=== PATIENT | female | born 1990 | race Caucasian/White ===

== ENCOUNTER 2023-11-02 13:12 | Outpatient (AMB) | payer OTHER, SELFPAY ==
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
[2023-11-02 13:25] VITALS: BP 108/78; PULSE 76; RESP 14; TEMP 36.4; O2SAT 100; BMI 38.8
== END 2023-11-02 13:53 | disposition home or self-care (01) ==
PROVIDERS: PCP Internal Medicine; Visit Provider Internal Medicine
DX: J45.909 Unspecified asthma, uncomplicated (principal); Z91.018 Allergy to other foods; S53.441S Ulnar collateral ligament sprain of right elbow, sequela; F41.9 Anxiety disorder, unspecified
CPT/HCPCS: 99214; G2211

== ENCOUNTER 2023-11-05 07:54 | Outpatient (REF) | payer OTHER, SELFPAY ==
[2023-11-05 11:21] LABS: MANUAL DIFF FLAG NO
[2023-11-05 11:31] LABS: Basophils Percent Auto 0.5 % (0-2); Eosinophils Absolute Auto 0.2 X10*3/uL (0.0-0.4); Eosinophils Percent Auto 5.2 % (0-4); Hematocrit 43.9 % (37.0-47.0); Hemoglobin 14.9 g/dl (12.0-16.0); Imm Gran Abs Auto 0.01 X10*3/uL (0.00-0.03); Imm Gran Pct Auto 0.2 % (0.0-0.4); Lymphocytes Absolute Auto 1.6 X10*3/uL (1.2-4.9); Lymphocytes Percent Auto 35.4 % (20-40); Mean Corpuscular HGB Conc 33.9 g/dl (31.0-35.0); Mean Corpuscular Hemoglobin 29.5 pg (27.0-33.0); Mean Corpuscular Volume 86.9 fL (80.0-98.0); Mean Platelet Volume 11.1 fL (9.4-12.3); Monocytes Absolute Auto 0.3 X10*3/uL (0.1-1.2); Monocytes Percent Auto 6.6 % (2-11); Neutrophils Absolute Auto 2.3 x10*3/uL (2.0-8.3); Neutrophils Percent Auto 52.1 % (45-73); Platelet Count 253 X10*3/uL (160-400); Red Blood Count 5.05 X10*6/uL (4.20-5.50); Red Cell Distribution Width 12.5 % (11.0-16.0); White Blood Count 4.4 X10*3/uL (4.8-10.8)
[2023-11-05 12:09] LABS: TSH reflex Free T4 1.48 uIU/mL (0.32-4.0)
[2023-11-07 08:14] LABS: Lutenizing Hormone 4.4 mIU/mL
[2023-11-12 04:38] LABS: Estradiol Ultra Sensitive 55 pg/mL
== END 2023-11-05 07:55 | disposition home or self-care (01) ==
LOC: HO.WFDLDS 07:54
PROVIDERS: Visit Provider Internal Medicine
DX: R23.2 Flushing (principal); R61 Generalized hyperhidrosis
CPT/HCPCS: 36415; 82670; 83002; 84443; 85025

== ENCOUNTER 2024-01-31 14:00 | Outpatient (AMB) | payer OTHER, SELFPAY ==
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
[2024-01-31 14:32] VITALS: BP 108/84; PULSE 86; RESP 18; O2SAT 96; BMI 33.6
== END 2024-01-31 15:19 | disposition home or self-care (01) ==
PROVIDERS: PCP Internal Medicine; Visit Provider Internal Medicine
DX: Z80.1 Family history of malignant neoplasm of trachea, bronchus and lung (principal); T75.89XA Other specified effects of external causes, initial encounter
CPT/HCPCS: 99213

== ENCOUNTER 2024-02-12 10:26 | Outpatient (REF) | payer OTHER, SELFPAY ==
--- NOTE | ~2024-02-12 | XR_ITS ---
EXAMINATION: XR CHEST CLINICAL INFORMATION: T75.89XA - Other specified effects of external causes, initial encounter COMPARISON: None available. TECHNIQUE: 2 views of the chest were obtained. FINDINGS: No consolidation, pleural effusion or pneumothorax. Cardiomediastinal silhouette is normal. Multilevel thoracic spondylosis, more conspicuous at T8-9. XR/XR chest 2V IMPRESSION: No acute airspace disease. Electronically signed by: Peter Guillory MD 04/24/2024 09:32 AM EST
== END 2024-02-12 10:27 | disposition home or self-care (01) ==
LOC: HO.HMGCX 10:26
PROVIDERS: PCP Internal Medicine; Visit Provider Internal Medicine
DX: J45.909 Unspecified asthma, uncomplicated (principal); T75.89XA Other specified effects of external causes, initial encounter
CPT/HCPCS: 71046

== ENCOUNTER → 2024-02-12 10:31 | Outpatient (BNV) | payer OTHER, SELFPAY | PROVIDERS: PCP Internal Medicine; Visit Provider Radiology Diagnostic Radiology | DX: T75.89XA Other specified effects of external causes, initial encounter (principal) | CPT/HCPCS: 71046 ==

== ENCOUNTER 2024-08-21 10:31 | Outpatient (AMB) | payer OTHER, SELFPAY ==
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
[2024-08-21 10:42] VITALS: BP 102/82; PULSE 64; RESP 12; O2SAT 99; BMI 29.5
--- OUTSIDE RECORDS SUMMARY | 2024-08-21 11:50 | XMS_ITS ---
Author Name [facility] Organization Unknown History of Medication Use Medication Directions Dispensed Refills Start Date End Date Stat us amoxicillin-clavula wagner (AUGMENTIN) 875-125 MG per tablet Take 1 tablet by mouth 2 (two) times a day. 07/25/2022 08/02/2022 active predniSONE (DELTASONE) 20 MG tablet Take 2 tablets (40 mg total) by mouth daily. With food. 07/25/2022 07/31/2022 active Problems Problem Status Onset Date Problem Type Date of Resoluti on Source Bronchitis with bronchospasm active EncounterDiagnosisAct [facility] Non-recurrent acute suppurative otitis media of right ear without spontaneous rupture of tympanic membrane active EncounterDiagnosisAct [facility] Encounters Encounter Type Encounter Reason Primary Diagnosis Location Date Ambulatory Acute suppurativ e otitis media without spontaneous rupture of ear drum, right ear [facility] 07/25/2022 Ambulatory Other plastic gee rgery for unacceptable cosmetic appearance [facility] 01/30/2022 Care Team Organization Name Specialty Phone Email Start Date End Da te [facility] NO PCP Primary Care 07/25/2022 07/25/2022 [facility] 07/25/2022 07/25/2022 [facility] 07/25/2022 [facility] Essie Olguin Primary Care 0 01/30/2022 01/30/2022
--- OUTSIDE RECORDS SUMMARY | 2024-08-21 11:50 | XMS_ITS | Clinical Summary ---
Author Organization [address] [address] Phone Care Team Providers Care Hat Blocking Operator Name Role Phone Essie Olguin MD Primary Care Provider Allergies Active Allergy Reactions Criticality Noted Date Comments [place] Anaphylaxis High 11/03/2021 Metoclopramide Seizures 11/03/2021 Medications cetirizine (ZYRTEC) 10 mg tablet Take 10 mg by mouth daily. Active albuterol sulfate 90 mcg/actuation aebs Inhale 180 mcg into the lungs every 4 (four) hours. Active fluticasone propionate (FLOVENT HFA) 110 mcg/actuation inhaler Inhale 2 puffs into the lungs 2 (two) times daily. Active Social History Tobacco Use Types Packs/Day Years Used Date Smoking Tobacco: Never Alcohol Use Standard Drinks/Week Comments Yes 0 (1 standard drink = 0.6 oz pur e alcohol) social Comments No Sex and Gender Information Value Date Recorded Sex Assigned at Not on file Legal Sex Female 2:51 PM EDT Gender Identity Not on file Sexual Orientation Not on file Last Filed Vital Signs Vital Sign Reading Time Taken Comments Blood Pressure 134/71 01/30/2022 10:00 PM EDT Pulse 89 01/30/2022 10:00 PM EDT Temperature 36.1 ??C (97 ??F) 01/30/2022 9:00 PM EDT Respiratory Rate 18 01/30/2022 10:00 PM EDT Oxygen Saturation 100% 01/30/2022 10:00 PM EDT Inhaled Oxygen Concentration - - Weight 95.3 kg (210 lb) 01/27/2022 4:38 PM EDT Height 157.5 cm (5' 2 ) 01/27/2022 4:38 PM EDT Body Mass Index 38.41 01/27/2022 4:38 PM EDT Plan of Treatment Health Maintenance Due Date Last Done Comments HIV screening 2001 Hepatitis C screening 2006 Tetanus adult (Td q 10,TDAP once) 2008 Cervical cancer screening 2009 Influenza vaccine 12/23/2023 Covid-19 vaccine series (2023-25 season) 2024 RSV Immunization (1 - 1-dose 75+ series) 08/04/2063 Meningococcal Vaccine Aged Out No mariluz seferino eligible based on patient's age to complete this topic Pneumococcal Vaccine (2 - 49 years) Aged Out No longer eligible based on patient's age to complete this topic Medical Devices Implanted Type Area Pelt Grader Device Identifier Shelf Expiration Date Model / Serial / Lot Clip Breast Insurance [facility] PL[facility] Care Teams Hat Blocking Operator Relationship Specialty Start Date End Date Essie Olguin MD PCP - General Internal Medicine 11/05/21
--- OUTSIDE RECORDS SUMMARY | 2024-08-21 11:50 | XMS_ITS | Clinical Summary ---
Author Organization [facility] Address [address] [place] [address] Care Team Providers Care Molder Punch Name Role Phone Pcp, No Primary Care Provider Unavailabl e Allergies Active Allergy Reactions Criticality Noted Date Comments [place] Anaphylaxis High 07/25/2022 Metoclopramide Anaphylaxis High 07/25/2022 Medications Medication Sig Dispensed Refills Start Date End Date Status Flovent HFA 110 MCG/ACT inhaler Inhale 2 puffs 2 (two) times a day. 05/26/2022 Active amoxicillin-clavulanat e (AUGMENTIN) 875-125 MG per tabletIndications:Non- recurrent acute suppurative otitis media of right ear without spontaneous rupture of tympanic membrane Take 1 tablet by mouth 2 (two) times a day. 14 tablet 07/25/2022 Active predniSONE (DELTASONE) 20 MG tabletIndications:Bron chitis with bronchospasm Take 2 tablets (40 mg total) by mouth daily. With food. 10 tablet 07/25/2022 Active Active Problems No known active problems Social History Tobacco Use Types Packs/Day Years Used Date Smoking Tobacco: Never Assessed Sex and Gender Information Value Date Recorded Sex Assigned at Not on file Gender Identity Not on file Sexual Orientation Not on file Last Filed Vital Signs Vital Sign Reading Time Taken Comments Blood Pressure 123/84 07/25/2022 9:44 AM EST Pulse 87 07/25/2022 9:44 AM EST Temperature 36.7 ??C (98.1 ??F) 07/25/2022 9:44 AM ES T Respiratory Rate - - Oxygen Saturation 94% 07/25/2022 9:44 AM EST Inhaled Oxygen Concentration - - Weight 90.7 kg (200 lb) 07/25/2022 9:44 AM EST Height 157.5 cm (5' 2 ) 07/25/2022 9:44 AM EST Body Mass Index 36.58 07/25/2022 9:44 AM EST Plan of Treatment Health Maintenance Due Date Last Done Comments Hepatitis C Virus Screening 1988 HIV Screening 2001 DTaP/Tdap/Td Vaccines (1 - Tdap) 08/04/2007 Hepatitis B Vaccines (1 of 3 - 19+ 3-dose series) 08/04/2007 Pap Smear (Ages 21-65) 2009 Influenza Vaccine 12/23/2023 COVID-19 Vaccine (1 - 2023-2 5 season) 2024 HPV Vaccines Aged Out No longer eligi ble based on patient's age to complete this topic Pneumococcal Vaccine: Pediat tiana (0-5 Years) and At-Risk Patients (6 to 49 Years) Aged Out No longer eligible b ased on patient's age to complete this topic Care Teams Molder Punch Relationship Specialty Start Date End Date Pcp, No PCP - General General Medicine 07/19/22
== END 2024-08-21 11:44 | disposition home or self-care (01) ==
LOC: HO.HMCFM 10:32
PROVIDERS: PCP Internal Medicine; Visit Provider Internal Medicine
DX: R68.82 Decreased libido (principal)

== ENCOUNTER → 2024-08-21 10:31 | Outpatient (BNVA) | payer OTHER, SELFPAY | PROVIDERS: PCP Internal Medicine; Visit Provider Internal Medicine | DX: R68.82 Decreased libido (principal); M25.50 Pain in unspecified joint | CPT/HCPCS: 96127 ==

== ENCOUNTER 2024-08-21 12:14 | Outpatient (REF) | payer OTHER, SELFPAY ==
--- OUTSIDE RECORDS SUMMARY | 2024-08-21 13:56 | XMS_ITS | Clinical Summary ---
Author Organization [address] [address] Phone Care Team Providers Care Skin Washer Name Role Phone Essie Olguin MD Primary Care Provider Allergies Active Allergy Reactions Criticality Noted Date Comments [place] Anaphylaxis High 11/03/2021 Metoclopramide Seizures 11/03/2021 Medications [...] this topic Medical Devices Implanted Type Area Shale Processing Technician Device Identifier Shelf Expiration Date Model / Serial / Lot Clip Breast Insurance [facility] PL[facility] Care Teams Skin Washer Relationship Specialty Start Date End Date Essie Olguin MD PCP - General Internal Medicine 11/05/21
--- OUTSIDE RECORDS SUMMARY | 2024-08-21 13:56 | XMS_ITS | Clinical Summary ---
Author Organization [facility] Address [address] [place] [address] Care Team Providers Care Picture Hanger Name Role Phone Pcp, No Primary Care Provider Unavailabl e Allergies Active Allergy Reactions Criticality Noted Date Comments [place] Anaphylaxis High 07/25/2022 Metoclopramide Anaphylaxis High 07/25/2022 [...] age to complete this topic Care Teams Picture Hanger Relationship Specialty Start Date End Date Pcp, No PCP - General General Medicine 07/19/22
[2024-08-21 15:54] LABS: Erythrocyte Sedimentation Rate 2 MM/HR (0-20)
[2024-08-22 20:59] LABS: CRP High Sensitivity 1.1 mg/L
== END 2024-08-21 12:15 | disposition home or self-care (01) ==
LOC: HO.WFDLDS 12:14
PROVIDERS: Visit Provider Internal Medicine
DX: M25.50 Pain in unspecified joint (principal)
CPT/HCPCS: 36415; 85652; 86141

== ENCOUNTER 2024-11-28 13:40 | Outpatient (AMB) | payer OTHER, SELFPAY ==
--- NOTE | 2024-11-28 14:08 | MHC.PC.OV ---
Vital Signs 11/28/24 14:12 Height 5 ft 2.6 in Weight 169 lb 6 oz BMI 30.4 BP 124/73 Blood Pressure Location Rt brachial Position Sitting Respiration 16 Pulse 63 Pulse Source Pulse Oximeter Temp 98.7 F Temp Source Oral Pulse Oximetry (%) 98 Oxygen Delivery Method Room Air Intake Visit Reasons: discuss some symptoms Intake Note: patient here c/o having some concerns about thyroid function Bead Flipper Required: No Is last menstrual period known: Yes Last menstrual period: 11/16/24 Post menopausal: No Patient : No Allergies corn Allergy (Unknown, Verified 11/28/24 14:42) Unknown gluten Allergy (Unknown, Verified 11/28/24 14:42) Unknown metoclopramide (From Reglan) Allergy (Unknown, Verified 11/28/24 14:42) Seizure Medication List - Last Reconciled 11/28/24 by Michelle Greenwood CNP budesonide 180 mcg/actuation (Pulmicort Flexhaler) 2 inhalations inhalation BID cetirizine (Zyrtec) 10 mg PO DAILY PRN Tobacco use date assessed: 11/28/24 Dental Screening Dental Screen Date: 11/28/24 Did you have a dental visit in the last 12 months?: Yes Did you have a dental problem in the last 6 months where you did not have access to dental care?: No Was dental information given to patient?: Patient has dentist HPI HPI Comments History of Present Illness Details 34-year-old female presents with complaints of brain fog, exhaustion, and thinning of her hair for the past 6 months. She also reports changes in her menstural cycle from 3.5 days to 5 days in the last 6 months. He denies any other symptoms. She usually follows Dr. Leal. Her last visit was 10 months ago. [facility] Medical History Varicella Tear of ulnar collateral ligament of elbow Stress reaction Right arm pain Class II obesity Moderate asthma without complication Migraine Insomnia Food allergy Anxiety Surgical History H/O adenoidectomy H/O arthroscopic knee surgery History of colposcopy Family History Mother FH: mental illness Father Alcoholism Cancer of skin Paternal Grandmother Alcoholism Maternal Grandmother Breast cancer Other Substance use Social History Housing: House Alcohol intake: current Patient Tobacco Use Status: Never used Tobacco e-Cigarette/Vaping Use: Never Used Second Hand Smoke Exposure: Yes (past) Current occupational status: employed 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 Current occupational exposures/hazards: No Cognitive needs: No Hearing needs: No Vision needs: Yes (glasses) Female Reproductive History Menstrual Date of last menstrual period: 11/16/24 Questionnaire Thrive Questionnaire Date Thrive assessed: 08/14/24 I am a: Patient What is your living situation today?: I have a steady place to live Within the past 12 months, did the food you bought not last and you didn't have the money to get more?: Never true Within the past 12 months, did you worry whether your food would run out before you got money to buy more?: Never true Do you have trouble paying for medicines?: No Do you have trouble getting transportation to medical appointments?: No Do you have trouble paying your heating and electricity bill?: No Do you have trouble taking care of your child, family member or friend?: No Do you have trouble with day-to-day activities such as bathing, preparing meals, shopping, managing finances, etc.?: No Are you currently unemployed and looking for a job?: No Are you interested in more education?: No Please select the resources that you would like help with: None Currently or been in a relationship where the following occur: No concerns reported THRIVE Score: 0 FELICIA-7 AMB Questionnaire FELICIA-7 Date FELICIA - 7 assessed: 08/21/24 Source: Developed by Drs. Toi Armijo, Avis Jordan, Antonio Morris and colleagues, with an educational kavya from [employer]. Review of Systems Const Details: Const Reports exhaustion, Denies chills, Denies fever(s), Denies headache(s) and Denies weakness ENT Denies dizziness and Denies headache(s) Card Denies chest pain, Denies lightheadedness, Denies dyspnea and Denies other (Palpitations) Resp Denies cough, Denies dyspnea, Denies wheezing and Denies other ( shortness of breath) GI Denies abdominal pain, Denies melena, Denies hematochezia, Denies change in bowel habits, Denies dyspepsia and Denies nausea Denies hematuria and Denies dysuria Musc Denies abnormal gait, Denies myalgias, Denies arthralgias, Denies numbness and Denies tingling Skin/Breast Denies rash, Denies unusual bruising and Denies wounds Neuro Denies abnormal gait, Denies dizziness, Denies headache(s), Denies memory loss, Denies numbness, Denies Sensory deficit (Neuro), Denies tingling and Denies weakness Psych Denies anxiety, Denies depression, Denies memory loss Endo Denies cold intolerance, Denies heat intolerance, Denies polydipsia and Denies polyuria Aller/Immun Denies wheezing Physical exam (Primary Care) Vital Signs: Last Vital Signs Temp 98.7 F 11/28/24 14:12 Pulse 63 11/28/24 14:12 Resp 16 11/28/24 14:12 BP 124/73 11/28/24 14:12 Pulse Ox 98 11/28/24 14:12 Oxygen Delivery Method Room Air 11/28/24 14:12 BMI result Body Mass Index 30.4 Tobacco/Smoking Status: Tobacco use Status Tobacco use date assessed 11/28/24 11/28/24 14:15 Patient Tobacco Use Status Never used Tobacco 11/28/24 14:09 e-Cigarette/Vaping Use Never Used 11/28/24 14:09 Thrive Assessment: Date of Thrive Assessment Date Thrive assessed 08/14/24 11/28/24 14:09 Currently or been in a relationship where the following occur: No concerns reported Const Other: General: no acute distress and well developed Nutritional Appearance: well nourished Orientation/consciousness: patient oriented x3 HENMT Head: Yes normocephalic and Yes atraumatic Eyes General: appearance normal, both eyes and all related structures Pupils: Equal, round and reactive pupils present EOM: EOMs intact bilaterally Resp Effort & Inspection: normal respiratory effort Auscultation: clear to auscultation bilaterally Cardio Rate: regular rate Rhythm: regular rhythm Heart sounds: S1 normal heart sound present, S2 normal heart sound present, no gallops, no murmurs and no rubs GI Palpation (GI): No Abdominal aortic bruit present, Soft to palpation, nontender, No hepatosplenomegaly present and No Rebound tenderness present Auscultation: normal bowel sounds General: Yes no CVA tenderness Back/Spine/Pelvis Back: no CVA tenderness Cervical Spine: cervical ROM normal and No Cervical spine tenderness Thoracic/Lumbar Spine: thoraco-lumbar ROM normal, No pain with thoraco-lumbar ROM, No thoracic spinal tenderness and No lumbar spinal tenderness Extrem General: Yes normal to inspection, No edema and No calf tenderness Skin General: warm and dry. Normal skin color. Normal skin turgor Lesions: no lesions Rashes: no rashes Trauma: no lacerations or abrasions Wounds: no wounds Nails: normal Neuro General: patient oriented x3, gait normal and no focal neuro deficit Cranial nerves: Yes Equal, round and reactive pupils present Cognition (Neuro): normal cognition Gait exam (Neuro): Normal gait present Sensory Exam: No Sensory deficit (Neuro) Psych Appearance: grossly normal Affect: normal affect Attitude: cooperative Thought process: Normal thought process present Coding Level of Care Code Est Pt Level 4 (76265) Diagnoses Exhaustion R53.83 Hair thinning L65.9 Brain fog R41.89 Assessment & Plan Assessment & Plan (1) Exhaustion: Code(s): R53.83 - Other fatigue Category: Medical Plan: Patient reports brain fog, exhaustion, and thinning of her hair for the past 6 months. She also reports changes in her menstural cycle from 3.5 days to 5 days in the last 6 months. Will check CBC, CMP, thyroid function, and vitamin-D levels. Will review results and make changes as needed. Encouraged to follow-up with her PCP as needed. Verbalized understanding and agreed with the plan. (2) Hair thinning: Code(s): L65.9 - Nonscarring hair loss, unspecified Category: Medical Plan: Plan as above. (3) Brain fog: Code(s): R41.89 - Other symptoms and signs involving cognitive functions and awareness Category: Medical Plan: Plan as above. Orders: Orders Complete Blood Count Auto Diff Today L65.9 - Nonscarring hair loss, unspecified, R41.89 - Other symptoms and signs involving cognitive functions and awareness, R53.83 - Other fatigue Comprehensive [place]. Panel Fast Today L65.9 - Nonscarring hair loss, unspecified, R41.89 - Other symptoms and signs involving cognitive functions and awareness, R53.83 - Other fatigue TSH reflex Free T4 Today L65.9 - Nonscarring hair loss, unspecified, R41.89 - Other symptoms and signs involving cognitive functions and awareness, R53.83 - Other fatigue Vitamin D 25-OH Total Today L65.9 - Nonscarring hair loss, unspecified, R41.89 - Other symptoms and signs involving cognitive functions and awareness, R53.83 - Other fatigue
[2024-11-28 14:12] VITALS: BP 124/73; PULSE 63; RESP 16; TEMP 37.1; O2SAT 98; BMI 30.4
--- OUTSIDE RECORDS SUMMARY | 2024-11-28 14:27 | XMS_ITS ---
Author Name [facility] Organization Unknown History of Medication Use Medication Directions Dispensed Refills Start Date End Date Stat us amoxicillin-clavula wagner (AUGMENTIN) 875-125 MG per tablet Take 1 tablet by mouth 2 (two) times a day. 07/25/2022 08/02/2022 active predniSONE (DELTASONE) 20 MG tablet Take 2 tablets (40 mg total) by mouth daily. With food. 07/25/2022 07/31/2022 active Allergies Allergen Reaction Severity Comment Documented Date Source Statu s METOCLOPRAMIDE ANAPHYLAXIS Severe 07/25/2022 [facility] ac tive CORN ANAPHYLAXIS Severe [facility] Problems Problem Status Onset Date Problem Type Date of Resoluti on Source Bronchitis with bronchospasm active EncounterDiagnosisAct [facility] Non-recurrent acute suppurative otitis media of right ear without spontaneous rupture of tympanic membrane active EncounterDiagnosisAct [facility] Encounters Encounter Type Encounter Reason Primary Diagnosis Location Date Ambulatory Acute suppurativ e otitis media without spontaneous rupture of ear drum, right ear [facility] 07/25/2022 Ambulatory Other plastic gee rgery for unacceptable cosmetic appearance 01/30/2022 Care Team Organization Name Specialty Phone Email Start Date End Da te [facility] 07/25/2022 07/25/2022 [facility] NO PCP Primary Care 07/25/2022 07/25/2022 [facility] 07/25/2022 Essie Olguin [facility] 0 01/30/2022 01/30/2022
--- OUTSIDE RECORDS SUMMARY | 2024-11-28 14:27 | XMS_ITS | Clinical Summary ---
Author Organization [facility] Address [address] [place] [address] Care Team Providers Care Can Striper Name Role Phone Pcp, No Primary Care Provider Unavailabl e Allergies Active Allergy Reactions Criticality Noted Date Comments [place] Anaphylaxis High 07/25/2022 Metoclopramide Anaphylaxis High 07/25/2022 Medications Flovent HFA 110 MCG/ACT inhaler Inhale 2 puffs 2 (two) times a day. 3 Active amoxicillin-clavu lanate (AUGMENTIN) 875-125 MG per tabletIndications :Non-recurrent acute suppurative otitis media of right ear without spontaneous rupture of tympanic membrane Take 1 tablet by mouth 2 (two) times a day. 14 tablet 3 Active predniSONE (DELTASONE) 20 MG tabletIndications :Bronchitis with bronchospasm Take 2 tablets (40 mg total) by mouth daily. With food. 10 tablet 3 Active Active Problems No known active problems Social History Tobacco Use Types Packs/Day Years Used Date Smoking Tobacco: Never Assessed Comments Unknown Sex and Gender Information Value Date Recorded Sex Assigned at Not on file Legal Sex Female 9:29 AM EST Gender Identity Not on file Sexual Orientation Not on file Last Filed Vital Signs Vital Sign Reading Time Taken Comments Blood Pressure 123/84 07/25/2022 9:44 AM EST Pulse 87 07/25/2022 9:44 AM EST Temperature 36.7 C (98.1 F) 07/25/2022 9:44 AM EST Respiratory Rate - - Oxygen Saturation 94% [...] series) 08/04/2007 Pap Smear (Ages 21-65) 2009 COVID-19 Vaccine (1 - 2023-2 5 season) 2024 Influenza Vaccine 12/22/2024 HPV Vaccines Aged Out No longer eligi ble based on patient's age to complete this topic Pneumococcal Vaccine: Pediat tiana (0-5 Years) and At-Risk Patients (6 to 49 Years) Aged Out No longer eligible b ased on patient's age to complete this topic Insurance [facility] Care Teams Can Striper Relationship Specialty Start Date End Date Pcp, No PCP - General General Medicine 07/19/22
== END 2024-11-28 14:50 | disposition home or self-care (01) ==
LOC: HO.HMCFM 13:41
PROVIDERS: PCP Internal Medicine; Visit Provider Nurse Practitioner Family
DX: R53.83 Other fatigue (principal); L65.9 Nonscarring hair loss, unspecified; R41.89 Other symptoms and signs involving cognitive functions and awareness

== ENCOUNTER 2024-12-05 07:49 | Outpatient (REF) | payer OTHER, SELFPAY ==
--- OUTSIDE RECORDS SUMMARY | 2024-12-05 07:52 | XMS_ITS | Clinical Summary ---
Author Organization [facility] Address [address] [place] [address] Care Team Providers Care Languages And Literature Instructor Name Role Phone Pcp, No Primary Care Provider Unavailabl e Allergies Active Allergy Reactions Criticality Noted Date Comments [place] Anaphylaxis High 07/25/2022 Metoclopramide Anaphylaxis High 07/25/2022 [...] patient's age to complete this topic Insurance [facility] Care Teams Languages And Literature Instructor Relationship Specialty Start Date End Date Pcp, No PCP - General General Medicine 07/19/22
--- OUTSIDE RECORDS SUMMARY | 2024-12-05 07:52 | XMS_ITS | Clinical Summary ---
Author Organization [address] [address] Phone Care Team Providers Care Stock Driver Name Role Phone Essie Olguin MD Primary Care Provider Allergies Active Allergy Reactions Criticality Noted Date Comments [place] Anaphylaxis High 11/03/2021 Metoclopramide Seizures 11/03/2021 Medications [...] 89 01/30/2022 10:00 PM EDT Temperature 36.1 C (97 F) 01/30/2022 9:00 PM EDT Respiratory Rate 18 [...] 10,TDAP once) 2008 Cervical cancer screening 2009 Covid-19 vaccine series (2023-25 season) 2024 Influenza vaccine 01/22/2025 RSV Immunization (1 - 1-dose 75+ series) 08/04/2063 Meningococcal Vaccine Aged Out No mariluz seferino eligible based on patient's age to complete this topic Pneumococcal Vaccine (2 - 49 years) Aged Out No longer eligible based on patient's age to complete this topic Medical Devices Implanted Type Area Ic Designer Gate Arrays Device Identifier Shelf Expiration Date Model / Serial / Lot Clip Breast Insurance [facility] PL[facility] Care Teams Stock Driver Relationship Specialty Start Date End Date Essie Olguin MD PCP - General Internal Medicine 11/05/21
[2024-12-05 11:32] LABS: MANUAL DIFF FLAG NO
[2024-12-05 11:37] LABS: Hematocrit 40.0 % (37.0-47.0); Hemoglobin 13.3 g/dl (12.0-16.0); Imm Gran Abs Auto 0.01 X10*3/uL (0.00-0.03); Imm Gran Pct Auto 0.2 % (0.0-0.4); Lymphocytes Absolute Auto 1.3 X10*3/uL (1.2-4.9); Mean Corpuscular HGB Conc 33.3 g/dl (31.0-35.0); Mean Corpuscular Hemoglobin 28.4 pg (27.0-33.0); Mean Corpuscular Volume 85.3 fL (80.0-98.0); NRBC Abs Auto 0.000 X10*3/uL (0.0-0.012); NRBC Pct Auto 0.0 /100WBC (0.0-0.2); Platelet Count 217 X10*3/uL (160-400); Red Blood Count 4.69 X10*6/uL (4.20-5.50); White Blood Count 4.9 X10*3/uL (4.8-10.8)
[2024-12-05 12:06] LABS: Alanine Aminotransferase 15 U/L (0-31); Albumin Level 4.2 g/dL (3.5-5.0); Alkaline Phosphatase 31 U/L (39-117); Anion Gap 9 (12-20); Aspartate Amino Transferase 13 U/L (5-31); Blood Urea Nitrogen 26 mg/dL (9-16); Calcium 9.0 mg/dL (8.4-10.2); Carbon Dioxide 27 mmol/L (22-29); Chloride 107 mmol/L (96-108); Estimated Glomerular Filt Rate > 60; Potassium 4.1 mmol/L (3.3-5.1); Sodium 139 mmol/L (135-145); Total Protein 6.8 g/dL (6.5-8.0)
== END 2024-12-05 07:50 | disposition home or self-care (01) ==
LOC: HO.WFDLDS 07:49
PROVIDERS: Visit Provider Nurse Practitioner Family
DX: R53.83 Other fatigue (principal); R41.89 Other symptoms and signs involving cognitive functions and awareness; L65.9 Nonscarring hair loss, unspecified
CPT/HCPCS: 36415; 80053; 82306; 84443; 85025

== ENCOUNTER 2024-12-19 09:50 | Outpatient (AMB) | payer OTHER, SELFPAY ==
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
[2024-12-19 10:04] VITALS: BP 96/70; PULSE 59; RESP 12; O2SAT 99; BMI 29.9
--- OUTSIDE RECORDS SUMMARY | 2024-12-19 10:28 | XMS_ITS | Clinical Summary ---
Author Organization [address] [address] Phone Care Team Providers Care Bottom Man Name Role Phone Essie Olguin MD Primary Care Provider Allergies Active Allergy Reactions Criticality Noted Date Comments [place] Anaphylaxis High 11/03/2021 Metoclopramide Seizures 11/03/2021 Medications [...] this topic Medical Devices Implanted Type Area Seaming Machine Operator Device Identifier Shelf Expiration Date Model / Serial / Lot Clip Breast Insurance [facility] Care Teams Bottom Man Relationship Specialty Start Date End Date Essie Olguin MD PCP - General Internal Medicine 11/05/21
--- OUTSIDE RECORDS SUMMARY | 2024-12-19 10:28 | XMS_ITS | Clinical Summary ---
Author Organization [facility] Address [address] [place] [address] Care Team Providers Care Digital Specialist Name Role Phone Pcp, No Primary Care Provider Unavailabl e Allergies Active Allergy Reactions Criticality Noted Date Comments [place] Anaphylaxis High 07/25/2022 Metoclopramide Anaphylaxis High 07/25/2022 [...] patient's age to complete this topic Insurance [facility] Care Teams Digital Specialist Relationship Specialty Start Date End Date Pcp, No PCP - General General Medicine 07/19/22
== END 2024-12-19 10:43 | disposition home or self-care (01) ==
LOC: HO.HMCFM 09:51
PROVIDERS: PCP Internal Medicine; Visit Provider Internal Medicine
DX: R53.83 Other fatigue (principal); L65.9 Nonscarring hair loss, unspecified

== ENCOUNTER 2024-12-19 11:02 | Outpatient (REF) | payer OTHER, SELFPAY ==
[2024-12-19 14:26] LABS: Iron 34 mcg/dL (30-160); Percent Iron Saturation 13 % (15-50); Total Iron Binding Capacity 264 mcg/dL (228-428); Unsaturated Iron Binding 230 ug/dL
[2024-12-19 20:35] LABS: Folate 5.7 ng/mL (> or = 4.0); Vitamin B12 631 pg/mL (200-900)
[2024-12-20 09:19] LABS: Lyme Abs Screen <0.90 index
== END 2024-12-19 11:03 | disposition home or self-care (01) ==
LOC: HO.WFDLDS 11:02
PROVIDERS: Visit Provider Internal Medicine
DX: R53.83 Other fatigue (principal); F41.9 Anxiety disorder, unspecified; L65.9 Nonscarring hair loss, unspecified
CPT/HCPCS: 36415; 82533; 82607; 82746; 83540; 86617; 86618

== ENCOUNTER 2025-02-13 08:38 | Outpatient (AMB) | payer OTHER, SELFPAY ==
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
[2025-02-13 08:45] VITALS: BP 119/72; PULSE 63; RESP 16; TEMP 36.4; O2SAT 100; BMI 29.6
--- OUTSIDE RECORDS SUMMARY | 2025-02-13 09:41 | XMS_ITS | Clinical Summary ---
Author Organization [facility] Address [address] [place] [address] Care Team Providers Care Fisher Eel Name Role Phone Pcp, No Primary Care Provider Unavailabl e Allergies Active Allergy Reactions Criticality Noted Date Comments [place] Anaphylaxis High 07/25/2022 Metoclopramide Anaphylaxis High 07/25/2022 [...] series) 08/04/2007 Pap Smear (Ages 21-65) 2009 HPV Vaccines (1 - 3-dose SCD M series) 08/04/2015 Influenza Vaccine 12/22/2024 COVID-19 Vaccine (1 - 2023-2 5 season) 2025 Pneumococcal Vaccine: Pediat tiana (0-5 Years) and At-Risk Patients (6 to 49 Years) Aged Out No longer eligible b ased on patient's age to complete this topic Insurance [facility] [facility] Care Teams Fisher Eel Relationship Specialty Start Date End Date Pcp, No PCP - General General Medicine 07/19/22
--- OUTSIDE RECORDS SUMMARY | 2025-02-13 09:41 | XMS_ITS | Clinical Summary ---
Author Organization [address] [address] Phone Care Team Providers Care Park Aide Name Role Phone Essie Olguin MD Primary Care Provider [phone] Allergies Active Allergy Reactions Criticality Noted Date Comments [place] Anaphylaxis High 11/03/2021 Metoclopramide Seizures 11/03/2021 Medications [...] 2008 Cervical cancer screening 2009 Influenza vaccine 12/22/2024 Covid-19 vaccine series ( - 2023-25 season) 2025 RSV Immunization (1 - 1-dose 75+ series) 08/04/2063 Meningococcal B Vaccine Aged Out No l onger eligible based on patient's age to complete this topic Meningococcal Vaccine Aged Out No mariluz seferino eligible based on patient's age to complete this topic Pneumococcal Vaccine (2 - 49 years) Aged Out No longer eligible based on patient's age to complete this topic Medical Devices Implanted Type Area Ice Cream Chef Device Identifier Shelf Expiration Date Model / Serial / Lot Clip Breast Insurance [facility] PLAN Care Teams Park Aide Relationship Specialty Start Date End Date Essie Olguin MD PCP - General Internal Medicine 11/05/21
== END 2025-02-13 11:22 | disposition home or self-care (01) ==
LOC: HO.HMCFM 08:39
PROVIDERS: PCP Internal Medicine; Visit Provider Internal Medicine
DX: Z91.018 Allergy to other foods (principal); L50.9 Urticaria, unspecified; J45.909 Unspecified asthma, uncomplicated; F41.9 Anxiety disorder, unspecified

== ENCOUNTER 2025-02-14 08:12 | Outpatient (REF) | payer OTHER, SELFPAY ==
--- OUTSIDE RECORDS SUMMARY | 2025-02-14 08:50 | XMS_ITS | Clinical Summary ---
Author Organization [facility] Address [address] [place] [address] Care Team Providers Care Electronics Tech Name Role Phone Pcp, No Primary Care Provider Unavailabl e Allergies Active Allergy Reactions Criticality Noted Date Comments [place] Anaphylaxis High 07/25/2022 Metoclopramide Anaphylaxis High 07/25/2022 [...] patient's age to complete this topic Insurance [facility] Care Teams Electronics Tech Relationship Specialty Start Date End Date Pcp, No PCP - General General Medicine 07/19/22
--- OUTSIDE RECORDS SUMMARY | 2025-02-14 08:51 | XMS_ITS | Clinical Summary ---
Author Organization [address] [address] Phone Care Team Providers Care Wholesale Agronomist Name Role Phone Essie Olguin MD Primary Care Provider Allergies Active Allergy Reactions Criticality Noted Date Comments [place] Anaphylaxis High 11/03/2021 Metoclopramide Seizures 11/03/2021 Medications [...] this topic Medical Devices Implanted Type Area Lidar Technician Device Identifier Shelf Expiration Date Model / Serial / Lot Clip Breast Insurance [facility] PL[facility] Care Teams Wholesale Agronomist Relationship Specialty Start Date End Date Essie Olguin MD PCP - General Internal Medicine 11/05/21
[2025-02-14 11:50] LABS: MANUAL DIFF FLAG NO
[2025-02-14 12:09] LABS: Hematocrit 41.0 % (37.0-47.0); Hemoglobin 13.7 g/dl (12.0-16.0); Imm Gran Abs Auto 0.01 X10*3/uL (0.00-0.03); Imm Gran Pct Auto 0.3 % (0.0-0.4); Lymphocytes Absolute Auto 1.3 X10*3/uL (1.2-4.9); Mean Corpuscular HGB Conc 33.4 g/dl (31.0-35.0); Mean Corpuscular Hemoglobin 28.5 pg (27.0-33.0); Mean Corpuscular Volume 85.4 fL (80.0-98.0); NRBC Abs Auto 0.000 X10*3/uL (0.0-0.012); NRBC Pct Auto 0.0 /100WBC (0.0-0.2); Platelet Count 233 X10*3/uL (160-400); Red Blood Count 4.80 X10*6/uL (4.20-5.50); White Blood Count 3.8 X10*3/uL (4.8-10.8)
== END 2025-02-14 08:13 | disposition home or self-care (01) ==
LOC: HO.WFDLDS 08:12
PROVIDERS: Visit Provider Internal Medicine
DX: Z91.018 Allergy to other foods (principal); L50.9 Urticaria, unspecified
CPT/HCPCS: 36415; 82533; 82784; 83088; 83520; 85025